=== PATIENT | female | born 1995 | race Caucasian/White ===

== ENCOUNTER 2021-04-02 17:39 | Outpatient (CLI) | payer OTHER | END 2021-04-02 17:40 | disposition EMS.NT | LOC: EMS 17:39 | DX: R55 Syncope and collapse (principal) ==

== ENCOUNTER 2021-04-02 18:40 | Emergency (ER) | payer OTHER ==
[2021-04-02 19:08] LABS: BASOPHILS # (AUTO) 0.1 10^3/uL (0.0-0.1); BASOPHILS % (AUTO) 0.5 %; EOSINOPHILS % (AUTO) 0.4 %; HCT - HEMATOCRIT 41.3 % (37.0-47.0); HGB - HEMOGLOBIN 14.2 g/dL (12.0-16.0); LYMPHOCYTES % (AUTO) 22.4 %; MEAN CORPUSCULAR HEMOGLOBIN 31.9 pg (27.0-31.0); MEAN CORPUSCULAR HGB CONC 34.4 g/dL (32.0-36.0); MEAN CORPUSCULAR VOLUME 92.8 fL (81.0-99.0); MEAN PLATELET VOLUME 9.1 fL (7.9-10.8); MONOCYTES # (AUTO) 0.5 10^3/uL (0.0-1.0); MONOCYTES % (AUTO) 5.9 %; NEUTROPHILS # (AUTO) 6.4 10^3/uL (1.5-6.6); NEUTROPHILS % (AUTO) 70.5 %; PLT - PLATELET COUNT 227 10^3/uL (130-450); RED BLOOD COUNT 4.45 10^6/uL (4.20-5.40); RED CELL DISTRIBUTION WIDTH 12.2 % (12.0-15.0); WHITE BLOOD COUNT 9.1 x10^3/uL (4.8-10.8)
[2021-04-02 19:15] LABS: BILIRUBIN,URINE NEGATIVE (NEGATIVE); GLUCOSE, URINE (UA) NEGATIVE (NEGATIVE); KETONES,URINE (UA) TRACE mg/dL (NEGATIVE); LEUKOCYTE ESTERASE, URINE NEGATIVE (NEGATIVE); NITRITE,URINE NEGATIVE (NEGATIVE); OCCULT BLOOD,URINE NEGATIVE (NEGATIVE); PROTEIN,URINE NEGATIVE (NEGATIVE); UROBILINOGEN,URINE 0.2 (NORMAL) E.U./dL (NORMAL)
--- NOTE | 2021-04-02 19:17 | ED Physician Documentation ---
History of Present Illness - Stated complaint Stated Complaint: SYNCOPE - Chief complaint Chief Complaint: Neuro - Additonal information Additional information: 25-year-old female presents emergency department for evaluation of a near syncop al episode. She was at work with the [employer] when she began to feel sudden cramping in her abdomen. She then felt nauseated and lightheaded. She began to get diaphoretic and she sat down and placed her head between her legs. When her coworkers noted she was not doing well they laid her down and elevated her legs which made her legs feel tingly. After a few minutes the symptoms subsided and she now feels back to baseline. Denies any pertinent past medical history. No tobaccoism. Social alcohol use only. Doubts . LMP 2 weeks ago. No previous history of syncope. Denies any family history of sudden cardiac under the age of 50. Patient is not on any hormones. No recent immobilization or surgeries. No unilateral leg swelling or travel. No history of DVT or cancer. Patient denies chest pain or shortness of air. She denies abdominal pain at this time. Her previously reported abdominal cramping improved after passing flatus. Denies headache, diplopia. Review of Systems Constitutional: denies: Fever, Chills Eyes: reports: Other (Tunnel vision for a brief moment). denies: Loss of vision Nose: reports: Reviewed and negative Throat: reports: Dental pain / toothache Cardiac: reports: Reviewed and negative Respiratory: reports: Reviewed and negative GI: reports: Abdominal Pain, Nausea. denies: Vomiting : reports: Reviewed and negative Skin: reports: Reviewed and negative Musculoskeletal: reports: Reviewed and negative Neurologic: reports: Near syncope. denies: Generalized weakness, Focal weakness, Numbness, Syncope, Seizure, Confused, Altered mental status, Unresponsive, Headache, Head injury, LOC PD PAST MEDICAL HISTORY - Present Medications Home Medications: Ambulatory Orders Medication Instructions Recorded Confirmed No Known Home Medications 04/02/21 04/02/21 - Allergies Allergies/Adverse Reactions: Allergies Allergy/AdvReac Type Severity Reaction Status Date / Time No Known Drug Allergies Allergy Verified 04/02/21 18:45 PD ED PE NORMAL - General General: Alert and oriented X 3, No acute distress - HEENT HEENT: PERRL - Neck Neck: Supple, no meningeal sign - Cardiac Cardiac: RRR, No murmur - Respiratory Respiratory: Clear bilaterally - Abdomen Abdomen: Normal bowel sounds, Soft, Non tender, Non distended - Back Back: No CVA TTP, No spinal TTP - Derm Derm: Warm and dry - Extremities Extremities: No deformity - Neuro Neuro: Alert and oriented X 3 Eye Opening: Spontaneous Motor: Obeys Commands Verbal: Oriented GCS Score: 15 Results - Vitals Vitals: Vital Signs - 24 hr 04/02/21 04/02/21 18:46 18:51 Temperature 36.9 C Heart Rate 70 Heart Rate [ 61 Sitting] Heart Rate [ 60 Standing] Heart Rate [ 62 Supine] Respiratory 19 Rate Blood Pressure 131/109 H Blood Pressure 97/62 [Sitting] Blood Pressure 100/63 [Standing] Blood Pressure 103/54 L [Supine] O2 Saturation 100 Oxygen O2 Source Room air - EKG (time done) 1844 Rate: Rate (enter#) (59) Rhythm: NSR [place]: Normal Intervals: Normal [place]. No: Prolonged QT QRS: Normal Ischemia: Normal ST segments Compare to prior EKG: Old EKG unavailable Computer interpretation: Agree with computer - Labs Labs: Laboratory Tests 04/02/21 04/02/21 04/02/21 19:01 19:04 19:04 WBC 9.1 RBC 4.45 Hgb 14.2 Hct 41.3 MCV 92.8 MCH 31.9 H MCHC 34.4 RDW 12.2 Plt Count 227 MPV 9.1 Neut # (Auto) 6.4 Lymph # (Auto) 2.0 [place] # (Auto) 0.5 Eos # (Auto) 0.0 Baso # (Auto) 0.1 Absolute Nucleated RBC 0.00 Nucleated RBC % 0.0 Sodium 134 L Potassium 3.7 Chloride 101 Carbon Dioxide 23 Anion Gap 10.0 BUN 17 Creatinine 0.9 Estimated GFR (MDRD) 76 L Glucose 94 Calcium 9.2 Total Bilirubin 0.9 AST 24 ALT 19 Alkaline Phosphatase 57 Total Protein 8.2 Albumin 4.4 Globulin 3.8 Albumin/Globulin Ratio 1.2 Lipase 33 Urine Color YELLOW Urine Clarity CLEAR Urine pH 6.0 Ur Specific [place] >=1.030 H Urine Protein NEGATIVE Urine Glucose (UA) NEGATIVE Urine Ketones TRACE Urine Occult Blood NEGATIVE Urine Nitrite NEGATIVE Urine Bilirubin NEGATIVE Urine Urobilinogen 0.2 (NORMAL) Ur Leukocyte Esterase NEGATIVE Ur Microscopic Review NOT INDICATED Urine Culture Comments NOT INDICATED Urine HCG, Qual NEGATIVE PD MEDICAL DECISION MAKING - ED course Complexity details: reviewed results, considered differential, d/w patient ED course: 25-year-old female presents emergency department for evaluation of a near syncopal episode occurred at work. She developed sudden onset stomach cramping then had nausea diaphoresis and a near fainting episode however she did not syncopized. History and exam is most consistent with a vasovagal event. Her screening EKG is unremarkable nonischemic. Orthostatics non revealing. Screening labs are also unremarkable. Patient is not . Patient is PERC negative. Findings were discussed with the patient. I have encouraged her to have very close follow-up with her primary care provider. If this becomes a recurrent theme she may benefit from a Holter monitor otherwise emergent return precautions were discussed. Departure - Departure Disposition: 01 Home, Self Care Clinical Impression: Vasovagal near-syncope Condition: Stable Record reviewed to determine appropriate education?: Yes Instructions: Understanding Vasovagal Syncope, ED Near Syncope Vasovagal Comments: Isela you were seen in the emergency department today for a near fainting episode. As we discussed I suspect that the cause of your symptoms was most likely a vasovagal event. Your screening labs and EKG are all unremarkable. You are not . Discussed this ED visit with your primary care provider or [facility]. If you have another fainting episode, develop chest pain, have sudden onset headache or weakness in your arms or legs please return immediately to the ER for a second look.
[2021-04-02 19:18] LABS: CLARITY,URINE CLEAR (CLEAR); HCG UR QUAL NEGATIVE
[2021-04-02 19:20] LABS: ALBUMIN 4.4 g/dL (3.2-5.5); ALBUMIN/GLOBULIN RATIO 1.2 (1.0-2.2); BILIRUBIN,TOTAL 0.9 mg/dL (0.2-1.0); CALCIUM 9.2 mg/dL (8.5-10.3); CREATININE 0.9 mg/dL (0.4-1.0); POTASSIUM 3.7 mmol/L (3.5-5.0); TOTAL PROTEIN 8.2 g/dL (6.7-8.2)
[2021-04-02 20:01] VITALS: BP 113/59
== END 2021-04-02 20:01 | disposition home or self-care (01) ==
LOC: ED 18:40
DX: R55 Syncope and collapse (principal)
CPT/HCPCS: 36415; 80053; 81001; 81003; 81025; 83690; 85025; 87086; 93005; 99283; 99284